=== PATIENT | female | born 1955 | race Caucasian/White ===

== ENCOUNTER 2022-01-08 19:19 | Inpatient (IN) | payer MEDICARE ==
[~2022-01-08] VITALS: Ht 160 cm; Wt 36.7 kg
[~2022-01-08 19:19] MED LIST: ADVAIR 250/28 DISKU1 IH; ASPIRIN 32325 MG/TAB PO; CRESTOR 10MG10 MG PO; EFFIENT10 MG PO; FLEXERIL10 MG PO; IBUPROFEN200 M2 PO; LISINOPRIL20 MG PO; METOPROLOL25 MG PO; PERCOCET 325 MG1 TA2 PO; PLAVIX 75MG TAB75 MG PO; SULFAMETH/TRIME1 TA1 PO; VENTOLIN0.09 MG IH; WELLBUTRIN SR150 MG PO
[2022-01-08 19:43] LABS: BASO # 0.1 K/mm3 (0.0-0.2); BASO % 0.3 % (0.0-2.0); EOS % 0.1 % (0.0-4.0); GRAN # 12.9 K/mm3 (1.4-6.5); GRAN % 81.3 % (42.2-75.2); HEMATOCRIT 36.5 % (37.0-47.0); HEMOGLOBIN 12.5 g/dl (12.5-16.0); LYMPH # 1.9 K/mm3 (1.2-3.4); LYMPH % 12.2 % (20.0-51.0); MEAN CELL VOLUME 92 fl (80.0-100.0); MEAN CORPUSCULAR HEMOGLOBIN 31 pg (27-31); MEAN CORPUSCULAR HGB CONC 34 g/dl (33.0-37.0); MEAN PLATELET VOLUME 8.9 fl (7.4-10.4); MONO # 0.9 K/mm3 (0.1-0.6); MONO % 5.5 % (1.7-9.3); PLATELET COUNT 339 K/mm3 (130-400); RED BLOOD COUNT 3.99 M/mm3 (4.10-5.30)
[2022-01-08 20:03] LABS: ALBUMIN 3.8 gm/dL (3.4-4.8); BILIRUBIN,TOTAL 0.3 mg/dL (0.2-1.2); C-REACTIVE PROTEIN 0.46 mg/dL (0.00-0.50); CALCIUM 9.3 mg/dL (8.4-10.2); CREATININE, serum 1.25 mg/dL (0.57-1.11); POTASSIUM 4.2 mmol/L (3.5-4.5)
[2022-01-08] MEDS ORDERED: KEPPRA 500MG500 MG PO (22:27)
[2022-01-08] MEDS ORDERED: RT ADVAIR 228 DISKUS IH ×2 (22:27→23:28)
[2022-01-08] MEDS ORDERED: LOPRESSOR 225 MG/TAB PO (22:28)
[2022-01-08] MEDS ORDERED: PLAVIX 75MG TAB75 MG PO (22:28)
[2022-01-08] MEDS ORDERED: ASPIRIN 81M81 MG/TA2 PO (22:29)
[2022-01-08] MEDS ORDERED: ZOCOR 20MG20 MG PO (22:29)
[2022-01-08] MEDS ORDERED: LEXAPRO 10MG10 MG PO (22:29)
[2022-01-08 23:06] VITALS: BP 129/68; PULSE 110; TEMP 99
[2022-01-08] MEDS ORDERED: OSCAL 500 TAB500 MG PO (23:35)
[2022-01-08] MEDS ORDERED: VITAMIN D250 MCG PO (23:36)
[2022-01-08] MEDS ORDERED: NATURAL IRON65 MG PO (23:36)
[2022-01-08] MEDS ORDERED: TYLENOL 325MG325 MG PO (23:38)
[2022-01-08] MEDS ORDERED: NORCO 325 MG-51 TAB PO (23:43)
--- NOTE | 2022-01-08 23:49 | NUR ---
Patient arrived to medical unit from ER at approximately 2300. Denies having pain and discomfort. Denies nausea at this time. Given water and jello as requested. Peripheral INT to left AC, IV fluids started per orders. Given HS medications. Reports feeling better since receiving IV fluids. Voices no questions, needs, or concerns at this time. In bed with call light within reach. High fall risk precautions in place. Bed alarm on. Seizure pads on bed.
--- NOTE | 2022-01-09 01:30 | NUR ---
THIS MANAGER QA PRESENTED TO ROOM AT 0031 TO CHECK ON PATIENT. PT ON ROOM AIR AT THIS TIME SLEEPING COMFORTABLY IN BED. NO SIGNS OF DISTRESS. PT WONDERING IF SHE COULD HAVE ANOTHER PILLOW FOR HER LEGS. NOTIFIED RN AT DESK. RN WENT TO GRAB PILLOW HR: 91 93% ON ROOM AIR. RR:14
[2022-01-09 03:32] VITALS: BP 107/57; PULSE 80; TEMP 98.5
--- NOTE | 2022-01-09 05:13 | NUR ---
Continues on IV fluids. Patient denies having pain and discomfort. Patient has not had any BMs since arriving to medical floor. Voices no questions, needs, or concerns at this time. In bed with call light within reach. High fall risk precautions in place.
[2022-01-09 05:26] LABS: MEAN CELL VOLUME 92 fl (80.0-100.0); MEAN CORPUSCULAR HGB CONC 34 g/dl (33.0-37.0); MEAN PLATELET VOLUME 8.7 fl (7.4-10.4); PLATELET COUNT 241 K/mm3 (130-400); RED BLOOD COUNT 3.11 M/mm3 (4.10-5.30); REDCELL DISTRIBUTION WIDTH-CV 13.2 % (11.5-14.5)
[2022-01-09 05:31] LABS: HEMATOCRIT 28.5 % (37.0-47.0); HEMOGLOBIN 9.7 g/dl (12.5-16.0); MEAN CORPUSCULAR HEMOGLOBIN 31 pg (27-31)
[2022-01-09 05:45] LABS: ALBUMIN 3.1 gm/dL (3.4-4.8); BILIRUBIN,TOTAL 0.3 mg/dL (0.2-1.2); CALCIUM 8.2 mg/dL (8.4-10.2); CREATININE, serum 0.82 mg/dL (0.57-1.11); POTASSIUM 4.1 mmol/L (3.5-4.5); TOTAL PROTEIN 5.3 gm/dL (6.2-8.1)
[2022-01-09 07:38] VITALS: BP 109/49; PULSE 76; TEMP 98.5
--- NOTE | 2022-01-09 08:52 | NUR ---
PT ALERT AND ORIENTED SITTING UP IN BED WATCHING TV. PT DENIES PAIN OR DISCOMFORT. PT CALL LIGHT WITHIN REACH. SEIZURE PRECAUTIONS IN PLACE. NO FURTHER NEEDS AT THE MOMENT.
[2022-01-09 11:14] VITALS: BP 145/67; PULSE 73; TEMP 98.5
--- NOTE | 2022-01-09 13:46 | NUR ---
Dental Instrument Maker met with patient to discuss discharge planning. Patient lives in [place] with her , Flaco (ph#[phone]) and sees Dr. Welch for primary care. Patient obtains medications from [facility] with no difficulties and does not use any DME. Patient is independent wt ADLS and plans to return home at time of discharge. Patient does not have DPOA-HC and was not interested in completing one at this time. Discharge Plan: Home
--- NOTE | 2022-01-09 18:58 | NUR ---
PT ALERT AND ORIENTED SITTING UP WATCHING TV. IV FLUIDS INFUSING. PT DENIES PAIN, N/V. CALL LIGHT WITHIN REACH. NO FURTHER NEEDS IDENTIFIED.
[2022-01-09 20:04] VITALS: BP 126/68; PULSE 68; TEMP 98.3
--- NOTE | 2022-01-09 21:46 | NUR ---
Patient assessed around 1924. Alert and oriented, and able to make needs known. Denies having pain and discomfort. Denies having any nausea, vomiting, and diarrhea today. Still need GI panel. Continues on IV fluids per orders. Voices no questions, needs, or concerns at this time. In bed with call light within reach.
[2022-01-10 00:27] VITALS: BP 119/50; PULSE 78; TEMP 98.1
[2022-01-10 04:36] VITALS: BP 124/52; PULSE 76; TEMP 98.3
--- NOTE | 2022-01-10 05:30 | NUR ---
Patient has denied having pain and discomfort this shift. Denies nausea, vomiting, and diarrhea this shift. Continues on IV fluids per orders. Left AC IV site huring. No infiltration noted. Offered to change IV site due to position. New IV started to right forearm, and IV site to left AC D/C'd. Patient thankful for IV site change. Voices no further questions, needs, or concerns at this time. In bed with call light within reach.
[2022-01-10 08:00] VITALS: BP 152/72; PULSE 75; TEMP 97.8
[2022-01-10] MEDS ORDERED: ZOFRAN ODT4 MG PO (08:23)
--- NOTE | 2022-01-10 09:18 | NUR ---
PT ALERT AND ORIENTED SITTING UP IN BED WATCHING TV. PT DENIES PAIN, NAUSEA OR VOMITING. PT VITALS ARE STABLE ON ROOM AIR. CALL LIGHT WITHIN REACH. NO FURTHER NEEDS IDENTIFIED.
--- NOTE | 2022-01-10 09:49 | NUR ---
Initial visit; Patient states she is doing very well and hopes to go home today but thanked Compounding And Finishing Supervisor for offering a [place] from [employer] [phone].
--- NOTE | 2022-01-10 10:18 | NUR ---
PT ACCOMPANIED BY SPOUSE. PT DISCHARGE INSTRUCTIONS GIVEN, PT VERBALIZES UNDERSTANDING. PT IV DISCONTINUED WITH NO COMPLICATIONS. PATIENT ESCORTED OUT VIA WHEELCHAIR. NO FURTHER NEEDS IDENTIFIED.
== END 2022-01-10 10:00 | disposition home or self-care (01) | DRG 392 ==
LOC: COL.ER 19:19 → MEDICAL 21:15
PROVIDERS: Emergency Medicine; Physician Assistant; ADMIT Internal Medicine
DX: A08.4 Viral intestinal infection, unspecified (principal); N17.9 Acute kidney failure, unspecified; E86.0 Dehydration; D64.9 Anemia, unspecified; I25.10 Atherosclerotic heart disease of native coronary artery without angina pectoris; I10 Essential (primary) hypertension; E78.5 Hyperlipidemia, unspecified; G40.909 Epilepsy, unspecified, not intractable, without status epilepticus; F17.210 Nicotine dependence, cigarettes, uncomplicated; Z20.822 Contact with and (suspected) exposure to COVID-19; F12.90 Cannabis use, unspecified, uncomplicated; D72.829 Elevated white blood cell count, unspecified; J44.9 Chronic obstructive pulmonary disease, unspecified; F32.A Depression, unspecified; Z98.51 Tubal ligation status; Z88.1 Allergy status to other antibiotic agents; Z95.5 Presence of coronary angioplasty implant and graft; Z88.5 Allergy status to narcotic agent; Z88.8 Allergy status to other drugs, medicaments and biological substances; Z23 Encounter for immunization
CPT/HCPCS: J2405; J2550; J7030

== ENCOUNTER 2022-03-29 09:02 | Day surgery (SDC) | payer MEDICARE ==
[~2022-03-29] VITALS: Ht 160 cm; Wt 37.2 kg
[~2022-03-29 09:02] MED LIST changes: +ASPIRIN 81M81 MG/TA2 PO; +KEPPRA 500MG500 MG PO; +LEXAPRO 10MG10 MG PO; +LOPRESSOR 225 MG/TAB PO; +NATURAL IRON65 MG PO; +NORCO 325 MG-51 TAB PO; +OSCAL 500 TAB500 MG PO; +RT ADVAIR 228 DISKUS IH; +TYLENOL 325MG325 MG PO; +VITAMIN D250 MCG PO; +ZOCOR 20MG20 MG PO; +ZOFRAN ODT4 MG PO
[2022-03-29 09:56] VITALS: BP 148/82; PULSE 73; TEMP 97.4
[2022-03-29 10:35] VITALS: BP 140/93; PULSE 72; TEMP 97.4
[2022-03-29 10:50] VITALS: BP 151/83; PULSE 68
[2022-03-29 11:05] VITALS: BP 168/79; PULSE 66
--- NOTE | 2022-03-29 11:10 | NUR ---
1035 RETURNS TO RROM 9 PER CART. AWAKE, ALERT. RESP CLEAR, SPONTANEOUS. AMBULATES TO RECLINER WITH STANDBY ASSIST. DENIES NAUSEA OR ABD PAIN. VITAL SIGNS OBTAINED. CALL LIGHT AT SIDE. IN ROOM. 1045 DR. ARRIAGA HERE TO SEE PATIENT. 1055 DISCHARGE INSTRUCTIONS REVIEWED. PATIENT VERBALIZES UNDERSTANDING. COPY PROVIDED IN DISCHARGE FOLDER. 1105 DRESSES SELF.
== END 2022-03-29 11:10 | disposition home or self-care (01) ==
LOC: SDCO 09:02
DX: Z12.11 Encounter for screening for malignant neoplasm of colon (principal); D12.3 Benign neoplasm of transverse colon; D12.8 Benign neoplasm of rectum; F17.210 Nicotine dependence, cigarettes, uncomplicated
CPT/HCPCS: J2704; J7120

== ENCOUNTER 2023-08-24 23:25 | Emergency (ER) | payer MEDICARE ==
[~2023-08-24] VITALS: Ht 162.6 cm; Wt 36.4 kg
[2023-08-24 23:36] VITALS: TEMP 98.8
[2023-08-25] MEDS ORDERED: Ondansetron 4 MG/2 ML VIAL IV ONE ×2 (02:30→04:00)
[2023-08-25] MEDS ORDERED: cefTRIAXone 1 G in Water For Injection,Sterile 10 ML IV ONE (02:30)
[2023-08-25] MEDS ORDERED: hydrALAZINE 20 MG/ML 1 ML VIAL IV ONE (02:30)
[2023-08-25] MEDS ORDERED: Morphine 4 MG/ML VIAL IV ONE ×2 (02:30→04:00)
[2023-08-25 02:45] LABS: BASO # 0.1 K/mm3 (0.0-0.2); BASO % 0.5 % (0.0-2.0); EOS % 0.3 % (0.0-4.0); GRAN # 11.7 K/mm3 (1.4-6.5); GRAN % 80.4 % (42.2-75.2); HEMOGLOBIN 14.4 g/dl (12.5-16.0); LYMPH # 1.5 K/mm3 (1.2-3.4); LYMPH % 10.2 % (20.0-51.0); MEAN CELL VOLUME 89 fl (80.0-100.0); MEAN CORPUSCULAR HEMOGLOBIN 30 pg (27-31); MEAN CORPUSCULAR HGB CONC 34 g/dl (33.0-37.0); MEAN PLATELET VOLUME 8.8 fl (7.4-10.4); MONO # 1.2 K/mm3 (0.1-0.6); MONO % 8.3 % (1.7-9.3); PLATELET COUNT 287 K/mm3 (130-400); RED BLOOD COUNT 4.84 M/mm3 (4.10-5.30); REDCELL DISTRIBUTION WIDTH-CV 13.2 % (11.5-14.5)
[2023-08-25 03:05] LABS: ALBUMIN 3.9 g/dL (3.4-4.8); BILIRUBIN,TOTAL 0.3 mg/dL (0.2-1.2); CALCIUM 9.6 mg/dL (8.4-10.2); CREATININE, serum 0.75 mg/dL (0.57-1.11); TOTAL PROTEIN 7.3 g/dl (6.2-8.1)
[2023-08-25 04:48] VITALS: BP 157/74; PULSE 98
== END 2023-08-25 04:48 | disposition home or self-care (01) ==
LOC: COL.ER 23:25
PROVIDERS: Personal Emergency Response Attendant
DX: L03.115 Cellulitis of right lower limb (principal); I45.10 Unspecified right bundle-branch block
CPT/HCPCS: J0360; J0696; J2270; J2405

== ENCOUNTER → 2023-08-25 | Outpatient (CLI) | payer MEDICARE | LOC: COL.RAD 08:25 | DX: M79.604 Pain in right leg (principal) ==